=== PATIENT | male | born 2000 | race Caucasian/White ===

== ENCOUNTER 2025-03-24 08:39 | Inpatient (IN) | payer OTHER, SELFPAY ==
[2025-03-24] VITALS (8 sets, daily range): BP systolic 95–120; BP diastolic 56–70; TEMP 97.1–98.6; O2SAT 97–100
[~2025-03-24] VITALS: Ht 182.9 cm; Wt 66.8 kg
[2025-03-24] MEDS: NS (Normal Saline) 0.9% 1,000 ML IV ONE (09:43)
[2025-03-24] MEDS: KETOROLAC 30 MG/ML 1 ML VIAL IV ONE (09:43)
[2025-03-24 09:49] LABS: VENOUS BASE EXCESS -21.7 (-2.0-2.0); VENOUS HCO3 7.3 MMOL/L (23.0-27.0); VENOUS O2 SATURATION 62.4 % (60.0-80.0); VENOUS PARTIAL PRESSURE CO2 27.0 mmHg (38.0-50.0); VENOUS PARTIAL PRESSURE O2 34.8 mmHg (30.0-50.0); VENOUS PH 7.052 UNITS (7.330-7.430); VENOUS STANDARD HCO3 9.4 MMOL/L; VENOUS TOTAL CO2 8.2 MMOL/L (24.0-28.0)
[2025-03-24 09:58] LABS: KETONE, URINE AUTO RFX 2+ mg/dL (NEGATIVE); LEUKOCYTE ESTERASE UR AUTO RFX NEGATIVE (NEGATIVE); MUCUS, URINE RFX SMALL (NEGATIVE); NITRITE, URINE AUTO RFX NEGATIVE (NEGATIVE); RBC, URINE AUTO RFX 0 /HPF (0-3); SQUAM EPITHELIAL CELL UR AURFX 0 /HPF (0-6); WBC, URINE AUTO RFX 1 /HPF (0-3)
[2025-03-24 10:00] LABS: BASO # 0.1 10^3/uL (0.0-0.2); BASO % 0.6 % (0.0-1.0); EOS # 0.1 10^3/uL (0.0-0.5); EOS % 0.9 % (0.0-3.0); LYMPH # 3.2 10^3/uL (1.5-5.0); LYMPH % 29.3 % (24.0-44.0); MONO # 0.6 10^3/uL (0.0-0.8); MONO % 5.3 % (2.0-8.0); NEUTROPHILS # 7.0 10^3/uL (1.5-8.5); NEUTROPHILS % 63.4 % (36.0-66.0); PLATELET COUNT, AUTOMATED 333 10^3/uL (150-450)
[2025-03-24 10:29] LABS: ACETONE/KETONE > 4.50 MMOL/L (0.02-0.27); ALT/SGPT 25 U/L (7.0-40); AST/SGOT 17 U/L (<34); CALCIUM LEVEL 9.3 MG/DL (8.5-10.1); CARBON DIOXIDE LEVEL < 10.0 MMOL/L (20-31); CHLORIDE LEVEL 99 MMOL/L (98-107); CK-MB VALUE MASS < 1.0 NG/ML (<3.6); CPK CREATINE PHOSPHOKINASE 31 U/L (46-171); CREATININE FOR GFR 0.67 MG/DL (0.70-1.30); GLOMERULAR FILTRATION RATE > 90.0 (>60); POTASSIUM SERUM 4.2 MMOL/L (3.5-5.1); SODIUM LEVEL 133 MMOL/L (136-145)
[2025-03-24 10:31] LABS: OSMOLALITY SERUM 314 MOSM/KG (275-295)
[2025-03-24] MEDS: HumuLIN R (REGULAR) INSULIN (NovoLIN R) **100 U/ML** PER UNIT IV ONE (10:49)
[2025-03-24] MEDS ORDERED: HOME MED LIST COMPLETE! XX SCH (11:15)
[2025-03-24] MEDS ORDERED: MED REC CURRENTLY UNOBTAINABLE XX SCH (11:20)
[2025-03-24] MEDS: INSULIN REGULAR IN 0.9 % NACL 100 UNIT in IV 1 EA IV SCH (11:41)
[2025-03-24] MEDS: LR 1,000 ML IV ONE (11:41)
[2025-03-24] MEDS: KCL 40MEQ IN D5/0.45NS 1000ML 1,000 ML IV SCH ×3 (12:00→17:10)
[2025-03-24] MEDS: ENOXAPARIN 40 MG/0.4 ML SYRINGE (J1650 PER 10MG) SC SCH (12:52)
[2025-03-24] MEDS: SYMBICORT 80/4.5MCG INHALER 6GM INH SCH (12:57)
[2025-03-24 15:09] LABS: CALCIUM LEVEL 8.7 MG/DL (8.5-10.1); CARBON DIOXIDE LEVEL < 10.0 MMOL/L (20-31); CHLORIDE LEVEL 105 MMOL/L (98-107); CREATININE FOR GFR 0.53 MG/DL (0.70-1.30); GLOMERULAR FILTRATION RATE > 90.0 (>60); MAGNESIUM LEVEL 1.7 MG/DL (1.8-2.4); PHOSPHORUS LEVEL 2.3 MG/DL (2.5-4.9); POTASSIUM SERUM 3.9 MMOL/L (3.5-5.1); SODIUM LEVEL 134 MMOL/L (136-145)
[2025-03-24] MEDS: MAG SULF 1GM/100ML (MAG RUN) 1 GM in IV 1 EA IV ONE (16:12)
[2025-03-24] MEDS: POTASSIUM PHOSPHATE INJ 30 MMOL in D5W 500 ML IV ONE (18:05)
[2025-03-24 18:31] LABS: CALCIUM LEVEL 8.6 MG/DL (8.5-10.1); CARBON DIOXIDE LEVEL 15 MMOL/L (20-31); CHLORIDE LEVEL 104 MMOL/L (98-107); CREATININE FOR GFR 0.51 MG/DL (0.70-1.30); GLOMERULAR FILTRATION RATE > 90.0 (>60); POTASSIUM SERUM 3.9 MMOL/L (3.5-5.1); SODIUM LEVEL 133 MMOL/L (136-145)
[2025-03-24 22:35] LABS: CALCIUM LEVEL 8.7 MG/DL (8.5-10.1); CARBON DIOXIDE LEVEL 18 MMOL/L (20-31); CHLORIDE LEVEL 107 MMOL/L (98-107); CREATININE FOR GFR 0.44 MG/DL (0.70-1.30); GLOMERULAR FILTRATION RATE > 90.0 (>60); POTASSIUM SERUM 3.9 MMOL/L (3.5-5.1); SODIUM LEVEL 136 MMOL/L (136-145)
[2025-03-24] MEDS: INSULIN IV RATE CHANGE DOCUMENTATION ML/HR XX SCH (23:11)
[2025-03-24] MEDS: LanTUS (INSULIN GLARGINE INJ) 1 UNITS/0.01 ML SC ONE (23:32)
[2025-03-25] VITALS: BP 100/58; TEMP 97.6; O2SAT 99
[2025-03-25 04:00] VITALS: BP 107/64; TEMP 98.6; O2SAT 97
[2025-03-25 05:53] LABS: ALT/SGPT 17 U/L (7.0-40); AST/SGOT 15 U/L (<34); CALCIUM LEVEL 8.8 MG/DL (8.5-10.1); CARBON DIOXIDE LEVEL 17 MMOL/L (20-31); CHLORIDE LEVEL 104 MMOL/L (98-107); CREATININE FOR GFR 0.42 MG/DL (0.70-1.30); GLOMERULAR FILTRATION RATE > 90.0 (>60); MAGNESIUM LEVEL 1.8 MG/DL (1.8-2.4); PHOSPHORUS LEVEL 2.7 MG/DL (2.5-4.9); POTASSIUM SERUM 3.8 MMOL/L (3.5-5.1); SODIUM LEVEL 135 MMOL/L (136-145)
[2025-03-25] MEDS ORDERED: GLUCAGON INJ 1 MG VIAL SC PRN (07:15)
[2025-03-25] MEDS ORDERED: GLUCOSE 4 GM CHEW PO PRN (07:15)
[2025-03-25] MEDS ORDERED: DEXTROSE 50% 50 ML SYRINGE IV PRN (07:15)
[2025-03-25] MEDS: INSULIN LISPRO (NovoLOG) PER UNIT SC SCH ×3 (07:27→21:00)
[2025-03-25 08:00] VITALS: BP 111/73; TEMP 98.2; O2SAT 98
[2025-03-25] MEDS ORDERED: OMEP40CA4 PO (08:16)
[2025-03-25] MEDS ORDERED: VENL150C43 PO (08:16)
[2025-03-25] MEDS ORDERED: BUSP15TA47 PO (08:16)
[2025-03-25] MEDS ORDERED: PROP60CA PO (08:16)
[2025-03-25] MEDS ORDERED: LANTINJ4 SC (08:16)
[2025-03-25] MEDS ORDERED: TIRZ2.5P SQ (08:16)
[2025-03-25] MEDS ORDERED: INSU100I24 SQ (08:16)
[2025-03-25] MEDS ORDERED: VENTAER INH (08:16)
[2025-03-25] MEDS ORDERED: HOME MED LIST COMPLETE! XX SCH (08:20)
[2025-03-25] MEDS: LanTUS (INSULIN GLARGINE INJ) 1 UNITS/0.01 ML SC ONE (09:11)
[2025-03-25] MEDS: SODIUM BICARBONATE 325 MG TAB PO SCH (09:11)
[2025-03-25 12:00] VITALS: BP 106/72; TEMP 98.4; O2SAT 98
[2025-03-25] MEDS ORDERED: busPIRone 5 MG TAB PO PRN (13:35)
[2025-03-25] MEDS: VENLAFAXINE **XR** 75MG CAPSULE PO SCH (15:02)
[2025-03-25] MEDS: PROPRANOLOL 60MG LA CAP PO SCH (15:03)
[2025-03-25 16:00] VITALS: BP 108/67; TEMP 98.1; O2SAT 96
[2025-03-25 16:39] LABS: CALCIUM LEVEL 8.8 MG/DL (8.5-10.1); CARBON DIOXIDE LEVEL 23 MMOL/L (20-31); CHLORIDE LEVEL 103 MMOL/L (98-107); CREATININE FOR GFR 0.44 MG/DL (0.70-1.30); GLOMERULAR FILTRATION RATE > 90.0 (>60); POTASSIUM SERUM 3.7 MMOL/L (3.5-5.1); SODIUM LEVEL 138 MMOL/L (136-145)
[2025-03-25 17:12] LABS: HIV 1&2 SCREEN NEGATIVE (NEGATIVE)
[2025-03-25 17:19] LABS: HEPATITIS C VIRUS ABY INDEX < 0.02 INDEX (<0.8)
[2025-03-25 20:17] VITALS: BP 113/64; TEMP 97.7; O2SAT 99
[2025-03-25] MEDS: CEPHALEXIN 500 MG CAP PO SCH (20:32)
[2025-03-25] MEDS ORDERED: LanTUS (INSULIN GLARGINE INJ) 1 UNITS/0.01 ML SC SCH (21:00)
[2025-03-25] MEDS: INSULIN LISPRO (NovoLOG) PER UNIT SC ONE (21:47)
[2025-03-26 00:01] VITALS: BP 111/63; TEMP 97.6; O2SAT 99
[2025-03-26 04:10] VITALS: BP 111/69; TEMP 98.2; O2SAT 99
[2025-03-26] MEDS ORDERED: INSULIN LISPRO (NovoLOG) PER UNIT SC SCH (07:30)
[2025-03-26 08:00] VITALS: BP 106/66; TEMP 97.4; O2SAT 98
[2025-03-26] MEDS: INSULIN LISPRO (NovoLOG) PER UNIT SC SCH ×2 (08:19→08:20)
[2025-03-26] MEDS: LanTUS (INSULIN GLARGINE INJ) 1 UNITS/0.01 ML SC SCH (08:19)
[2025-03-26 10:47] LABS: PLATELET COUNT, AUTOMATED 252 10^3/uL (150-450)
[2025-03-26 11:34] LABS: ALT/SGPT 18 U/L (7.0-40); AST/SGOT 18 U/L (<34); CALCIUM LEVEL 9.7 MG/DL (8.5-10.1); CARBON DIOXIDE LEVEL 34 MMOL/L (20-31); CHLORIDE LEVEL 100 MMOL/L (98-107); CREATININE FOR GFR 0.57 MG/DL (0.70-1.30); GLOMERULAR FILTRATION RATE > 90.0 (>60); POTASSIUM SERUM 3.4 MMOL/L (3.5-5.1); SODIUM LEVEL 142 MMOL/L (136-145)
[2025-03-26 16:00] VITALS: BP 91/52; TEMP 98; O2SAT 96
[2025-03-26 18:15] VITALS: BP 108/52; TEMP 98.3; O2SAT 96
[2025-03-26 20:00] VITALS: BP 100/70; TEMP 98.7; O2SAT 97
[2025-03-27 04:00] VITALS: BP 103/60; TEMP 97.2; O2SAT 97
[2025-03-27 05:52] LABS: BASO # 0.0 10^3/uL (0.0-0.2); BASO % 0.6 % (0.0-1.0); EOS # 0.1 10^3/uL (0.0-0.5); EOS % 2.0 % (0.0-3.0); LYMPH # 3.1 10^3/uL (1.5-5.0); LYMPH % 60.1 % (24.0-44.0); MONO # 0.5 10^3/uL (0.0-0.8); MONO % 9.6 % (2.0-8.0); NEUTROPHILS # 1.4 10^3/uL (1.5-8.5); NEUTROPHILS % 27.5 % (36.0-66.0); PLATELET COUNT, AUTOMATED 232 10^3/uL (150-450)
[2025-03-27 06:30] LABS: ALT/SGPT 20 U/L (7.0-40); AST/SGOT 22 U/L (<34); CALCIUM LEVEL 8.8 MG/DL (8.5-10.1); CARBON DIOXIDE LEVEL 33 MMOL/L (20-31); CHLORIDE LEVEL 103 MMOL/L (98-107); CREATININE FOR GFR 0.49 MG/DL (0.70-1.30); GLOMERULAR FILTRATION RATE > 90.0 (>60); POTASSIUM SERUM 3.6 MMOL/L (3.5-5.1); SODIUM LEVEL 143 MMOL/L (136-145)
[2025-03-27 08:39] VITALS: BP 94/51
[2025-03-27 11:02] LABS: HEPATITIS B SURF AB QUANT < 5 mIU/mL (> OR = 10)
[2025-03-27 11:58] VITALS: BP 110/64; TEMP 97.4; O2SAT 98
[2025-03-27 12:02] LABS: HEPATITIS B CORE ANTIBODY IGG NON-REACTIVE (NON-REACTIVE)
[2025-03-27] MEDS: FLUZONE VACCINE TRI PF(25-26) 0.5ML SYRINGE IM.IMMUN ONE (12:25)
[2025-03-27] MEDS ORDERED: VENL150C43 PO (16:20)
[2025-03-27] MEDS ORDERED: TIRZ2.5P SQ (16:20)
[2025-03-27] MEDS ORDERED: LANTINJ4 SC (16:20)
[2025-03-27] MEDS ORDERED: OMEP40CA4 PO (16:20)
[2025-03-27] MEDS ORDERED: INSU100I24 SQ (16:20)
[2025-03-27] MEDS ORDERED: CEPH500C PO (16:20)
[2025-03-27] MEDS ORDERED: BUSP15TA47 PO (16:20)
[2025-03-27] MEDS ORDERED: PROP60CA PO (16:20)
[2025-03-27] MEDS ORDERED: VENTAER INH (16:20)
[2025-03-27 20:10] VITALS: BP 99/56; TEMP 98.1; O2SAT 99
[2025-03-28 04:37] VITALS: BP 93/53; TEMP 98.8; O2SAT 96
[2025-03-28] MEDS: LanTUS (INSULIN GLARGINE INJ) 1 UNITS/0.01 ML SC SCH (08:21)
[2025-03-28 08:22] VITALS: BP 91/59
[2025-03-28] MEDS: INSULIN LISPRO (NovoLOG) PER UNIT SC SCH (08:22)
[2025-03-28 12:16] VITALS: BP 108/64; TEMP 97.1; O2SAT 98
[2025-03-28] MEDS ORDERED: PROP20TA72 PO (17:29)
== END 2025-03-28 18:03 | disposition home or self-care (01) | DRG 420 ==
LOC: EDBD 08:39 → M ED 08:39 → M ED INP 11:27 → M ICU 12:02 → M MS4PR 03-26 18:10
PROVIDERS: ADMIT Internal Medicine Pulmonary Disease; ATTEND Student in an Organized Health Care Education/Training Program
DX: E10.10 Type 1 diabetes mellitus with ketoacidosis without coma (principal); E10.65 Type 1 diabetes mellitus with hyperglycemia; M51.16 Intervertebral disc disorders with radiculopathy, lumbar region; G89.29 Other chronic pain; F41.9 Anxiety disorder, unspecified; F32.A Depression, unspecified; J45.909 Unspecified asthma, uncomplicated; L98.9 Disorder of the skin and subcutaneous tissue, unspecified; F17.290 Nicotine dependence, other tobacco product, uncomplicated; Z91.128 Patient's intentional underdosing of medication regimen for other reason; Z88.5 Allergy status to narcotic agent; Z59.89 Other problems related to housing and economic circumstances; T38.3X6A Underdosing of insulin and oral hypoglycemic [antidiabetic] drugs, initial encounter